=== PATIENT | female | born 1990 | race Caucasian/White ===

== ENCOUNTER 2024-06-29 14:45 | Emergency (ER) | payer OTHER, SELFPAY ==
[2024-06-29 14:50] VITALS: BP 126/88
--- NOTE | 2024-06-29 16:24 | ED.GENMED ---
History of Present Illness
General
Chief Complaint: Oral/Mouth Problem
Source: patient
Time Seen by Provider: 06/29/24 16:24
History of Present Illness
History of Present Illness:
33-year-old female otherwise healthy presents with several days worth of progressively worsening pain to the left side of her face mainly around her gum but does go to her chin up to her cheek and behind her eye. She denies a rash. She denies
fever. She tried ibuprofen Voltaren and Tylenol home without relief. She is starting getting some numbness around the left side of the chin. She denies a rash or facial asymmetry. No other complaints at this time
Phy Exam
Physical Exam
Physical Exam:
General: Well-appearing female no acute respiratory distress
HEENT: Normocephalic face is symmetric dentition appears well no gingival swelling posterior pharynx is patent neck is supple no trismus or drooling
Neurologic exam: The face is symmetric cranial nerves intact conversing appropriately no slurred speech
Skin is warm no swelling or erythema or rash
Course
Orders/Labs/Results
Orders:
Orders
06/29/24 16:37
Ketorolac [Toradol] 15 mg IV NOW STA
Panelipse CR [PX Panelipse] Urgent
Comment:
Reason For Exam: left dental pain
06/29/24 17:37
Gabapentin [Neurontin] 300 mg PO NOW STA
06/29/24 17:52
Add On- LAB Stat
Tests Added?: hcg qual
06/29/24 17:55
Complete Blood Count/With Diff Urgent
Comprehensive Metabolic Panel Urgent
HCG, Serum Qualitative Screen Urgent
Comment: ADD ON
06/29/24 18:02
0.9% Sodium Chloride 1000 ml [Nss] 1,000 ml IV BOLUS
06/29/24 18:49
HYDROmorphone [Dilaudid] 0.25 mg IV NOW STA
Ondansetron Injectable [Zofran] 4 mg IV NOW STA
06/29/24 19:25
HYDROmorphone [Dilaudid] 0.25 mg .ROUTE .STK-MED ONE
06/29/24 19:26
HYDROmorphone [Dilaudid] 0.25 mg IV NOW STA
06/29/24 20:04
Oxycodone/Acetaminophen [Percocet 5/325] 1 tablet PO NOW STA
Abnormal Lab Results
06/29/24
17:55
RBC 4.16 L 10^6/uL
(4.20-5.40)
Hct 36.6 L %
(37.0-47.0)
MPV 10.8 H fL
(7.4-10.4)
06/29/24 17:55
06/29/24 17:55
Vital Signs
Initial and Last Documented VS:
Initial Vital Signs
Temp Pulse Resp BP Pulse Ox
98.5 F 94 18 126/88 99
06/29/24 14:50 06/29/24 14:50 06/29/24 14:50 06/29/24 14:50 06/29/24 14:50
Last Documented Vital Signs
Temp Pulse Resp BP Pulse Ox
98.5 F 88 18 120/82 100
06/29/24 14:50 06/29/24 19:33 06/29/24 14:50 06/29/24 19:33 06/29/24 19:33
MDM/Problems Addressed
Differential Diagnosis Includes:
Patient with left-sided facial pain. Consider dental related pain versus neuropathic pain. No signs of a rash to shingles or cellulitis.
[id number] medications are not helping. Will try Toradol here. Panorex x-ray pending
*Critical Care Note
Total Time (30-74mins, 75-104mins- exclusive of procedures): Not Applicable
Update Note
Update Note:
Labs reviewed without significant findings. X-ray reviewed shows no acute finding. Hide a list would be some type of neuropathic pain. 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 Will continue with gabapentin 300 mg 3 times a
day. Also will prescribe oxycodone as needed for severe pain with Zofran. Recommend follow-up with family doctor. Neurology referral also given.
ED Attending Note
-
Portions of this chart may have been created with voice recognition software.� Occasional wrong word or��sound alike� substitutions may have occurred due to the inherent limitations of voice recognition software.
Discharge Plan
Departure
Patient Disposition: Home (Routine Discharge)
Date of Disposition: 06/29/24
Time of Disposition: 20:07
Patient with high blood pressure during this ER visit?: No
Discharge Problem:
Facial pain
Instructions: Trigeminal neuralgia
Prescriptions:
New
gabapentin 300 mg capsule
300 mg PO TID Qty: 21 0RF
ondansetron 4 mg tablet,disintegrating
4 mg PO Q8H PRN (Reason: nausea and vomiting) Qty: 10 0RF
oxycodone-acetaminophen [Percocet] 5-325 mg tablet
1 tab PO Q6HPRN PRN (Reason: pain) Qty: 10 0RF
Referrals:
Wolf Huggins MD [Active] -
Geovanna Blanco MD [Family Provider] -
Activity Restrictions/Additional Instructions:
Take medicine as directed. Use Zofran if needed for nausea. Follow-up with neurology and family doctor. Return if worse otherwise
Interventions
Interventions:
*Risk Screen - Suicide Last Done: 06/29/24 14:51
*General Assessment Last Done: 06/29/24 14:51
*Neglect/Abuse Screening Last Done: 06/29/24 14:51
*ED COVID-19 Vaccine History Last Done: 06/29/24 14:51
Discharge Date and Time
Print Language: [place]
[2024-06-29] MEDS: TORADOL 15 MG IV (17:41)
[2024-06-29] MEDS: NEURONTIN 300 MG PO ×2 (17:47→20:18)
[2024-06-29] MEDS: NSS 1000 IV (18:08)
[2024-06-29 18:12] LABS: % Basophils 0.7 % (0-2); % Eosinophils 0.7 % (0-6); % Immature Granulocytes 0.2 % (0-0.5); % Lymphocytes 34.1 % (20.5-51.1); % Monocytes 7.6 % (1.7-9.3); % Neutrophils 56.7 % (42.2-75.2); Absolute Lymphocytes 1.8 10^3/uL (1.2-3.4); Absolute Monocytes 0.4 10^3/uL (0.1-0.6); Absolute Neutrophils 3.1 10^3/uL (1.4-6.5); Hematocrit 36.6 % (37.0-47.0); Hemoglobin 12.5 g/dL (12.0-16.0); Mean Corp Hgb Conc. 34.2 g/dL (33.0-37.0); Mean Platelet Volume 10.8 fL (7.4-10.4); Nucleated Red Blood Cells % 0 %; Platelet Count 233 10^3/uL (130-400); Red Blood Cell Count 4.16 10^6/uL (4.20-5.40); Red Cell Dist. Width 12.8 % (11.5-14.5); White Blood Cell Count 5.4 10^3/uL (4.8-10.8)
[2024-06-29 18:31] LABS: ALT (SGPT) 16 U/L (0-35); AST (SGOT) 19 U/L (14-36); Albumin 4.6 g/dl (3.5-5.0); Alkaline Phosphatase 47 U/L (38-126); Blood Urea Nitrogen 16 mg/dl (7-17); Calcium 9.1 mg/dl (8.4-10.2); Carbon Dioxide 22 mmol/L (22-30); Chloride 105 mmol/L (98-107); Glucose 87 mg/dl (70-99); Sodium 135 mmol/L (135-145); Total Bilirubin 0.4 mg/dl (0.2-1.3); Total Protein 7.1 g/dl (6.3-8.2); eGFR > 60.00
[2024-06-29 18:37] LABS: Potassium 3.8 mmol/L (3.5-5.1)
[2024-06-29] MEDS: ZOFRAN 4 MG IV (18:54)
[2024-06-29] MEDS: DILAUDID 0.25 MG IV ×2 (18:54→19:26)
[2024-06-29 19:05] LABS: HCG, Serum Qualitative Screen Negative
[2024-06-29 19:33] VITALS: BP 120/82
[2024-06-29] MEDS: ZOFRAN ODT (ORALLY DISINTEGRATING) 4 MG PO (20:19)
== END 2024-06-29 20:35 | disposition home or self-care (01) ==
LOC: EMR 14:45
PROVIDERS: EMERGENCY PHYSICIAN Emergency Medicine; FAMILY PHYSICIAN Family Medicine
DX: R51.9 Headache, unspecified (principal); R20.0 Anesthesia of skin; K08.89 Other specified disorders of teeth and supporting structures; Z88.8 Allergy status to other drugs, medicaments and biological substances
CPT/HCPCS: 99284; 96374; 96375 ×2; 96376; 70355; 80053; 84703; 85025